=== PATIENT | male | born 1970 | race Caucasian/White ===

== ENCOUNTER 2017-10-18 19:22 | Emergency (ER) | payer MEDICAID ==
[2017-10-18 20:59] LABS: APPEARANCE HAZY (CLEAR); BACTERIA MANY /hpf (NONE SEEN); BILIRUBIN NEGATIVE (NEGATIVE); COLOR YELLOW (YELLOW); GLUCOSE NEGATIVE (NEGATIVE); KETONE NEGATIVE (NEGATIVE); NITRITE POSITIVE (NEGATIVE); PROTEIN NEGATIVE (NEGATIVE); RED CELLS - URINE OCC /hpf (0-5); SPECIFIC GRAVITY 1.015 (1.005-1.020); UROBILINOGEN NORMAL (NORMAL)
[2017-10-18 21:11] LABS: BASOPHILS 0.1 % (0-2); EOSINOPHILS 0.4 % (0-7); HEMATOCRIT 39.3 % (42.0-54.0); IMMATURE GRANULOCYTES 0.4 % (0-5); LYMPHOCYTES 7.5 % (15-50); MCH 23.9 pg (26.0-34.0); MCHC 30.5 g/dL (31.0-37.0); MCV 78.1 fL (80.0-100.0); MEAN PLATELET VOLUME 8.7 fL (7.4-10.4); MONOCYTES 5.7 % (2-11); NEUTROPHILS 85.9 % (40-80); PLATELET COUNT 228 10x3/uL (130-400); RBC 5.03 10x6/uL (4.20-6.10); WBC 6.7 10x3/uL (4.8-10.8)
[2017-10-18 21:29] LABS: ALBUMIN 4.4 g/dL (3.4-5.0); ALKALINE PHOSPHATASE 73 U/L (46-116); ALT (SGPT) 66 U/L (10-68); AMYLASE - SERUM 44 U/L (25-115); CALC OSMOLALITY 271 mosm/kg (275-300); CALCIUM 8.9 mg/dL (8.5-10.1); CARBON DIOXIDE 27.6 mmol/L (21.0-32.0); CHLORIDE - SERUM 97 mmol/L (98-107); CREATININE - SERUM 0.9 mg/dL (0.6-1.3); GLUCOSE 88 mg/dL (74-106); LIPASE 201 U/L (73-393); POTASSIUM - SERUM 3.5 mmol/L (3.5-5.1); PROTEIN - SERUM 8.2 g/dL (6.4-8.2); SODIUM 137 mmol/L (136-145); UREA NITROGEN 10 mg/dL (7-18); eGFR NON AFRICAN AMERICAN > 90 mL/min (90-120)
== END 2017-10-18 22:25 | disposition home or self-care (01) ==
LOC: D.ER 19:22
PROVIDERS: Family Medicine
DX: N39.0 Urinary tract infection, site not specified (principal); B20 Human immunodeficiency virus [HIV] disease

== ENCOUNTER 2019-07-30 22:43 | Day surgery (SDC) | payer MEDICAID ==
[~2019-07-30] VITALS: Ht 175.3 cm; Wt 86.4 kg
[2019-07-30] MEDS ORDERED: ZOFRAN ODT4 MG/UDTAB PO (22:48)
[2019-07-30] MEDS ORDERED: OMEPRAZOLE20 M1 PO (22:48)
[2019-07-30] MEDS ORDERED: BUPROPION XL300 MG PO (22:48)
[2019-07-30] MEDS ORDERED: STRIBILD TABLE1 EACH PO (22:48)
[2019-07-30] MEDS ORDERED: EFFEXOR37.5 MG PO (22:49)
[2019-07-30] MEDS ORDERED: COZAAR25 MG PO (22:50)
[2019-07-30] MEDS ORDERED: HYDROCHLOROTH12.5 M1 PO (22:50)
[2019-07-30] MEDS ORDERED: LOPRESSOR25 MG PO (22:50)
[2019-07-30 23:48] LABS: HEMATOCRIT 37.1 % (42.0-54.0); HEMOGLOBIN 12.7 g/dL (13.5-17.5); LYMPHOCYTES 17.6 % (15-50); MCH 29.1 pg (26.0-34.0); MCHC 34.2 g/dL (31.0-37.0); MCV 84.9 fL (80.0-100.0); MEAN PLATELET VOLUME 7.9 fL (7.4-10.4); RBC 4.37 10x6/uL (4.20-6.10); RDW 14.9 % (11.5-14.5); WBC 10.7 10x3/uL (4.8-10.8)
[2019-07-30 23:49] LABS: PLATELET COUNT 278 10x3/uL (130-400)
[2019-07-30 23:56] LABS: ANION GAP 16.3 mmol/L (8-16); CALCIUM 9.8 mg/dL (8.5-10.1); CARBON DIOXIDE 23.4 mmol/L (21.0-32.0); CREATININE - SERUM 1.2 mg/dL (0.6-1.3); POTASSIUM - SERUM 3.7 mmol/L (3.5-5.1)
[2019-07-31 00:02] LABS: ALBUMIN 4.4 g/dL (3.4-5.0); BILIRUBIN - TOTAL 1.06 mg/dL (0.2-1.3); PROTEIN - SERUM 8.6 g/dL (6.4-8.2)
--- NOTE | 2019-07-31 00:22 | NUR ---
RECEIVED PT TO FLOOR VIA STRETCHER. PT AMBULATED FROM STRETCHER INTO ROOM AND WALKED AROUND ROOM BEFORE GETTING IN BED. RIGHT HAND IV FLUSHED AND CONNECTED TO IV FLUIDS. DENIES PAIN. PT IS HYPERACTIVE AND RESTLESS. ADMITS TO USING METH TODAY. REVIEWED HOME MEDS AND HISTORY. ASSESSMENT COMPLETE PER FLOW-SHEET. PT IS NPO FOR POSSIBLE PROCEDURE. WILL CONTINUE TO MONITOR.
[2019-07-31] MEDS ORDERED: COZAAR50 MG PO (00:42)
[2019-07-31] MEDS ORDERED: EFFEXOR XR150 MG PO (00:42)
[2019-07-31] MEDS ORDERED: GENVOYA PO (00:44)
[2019-07-31] MEDS ORDERED: VALTREX1000 MG PO (00:46)
[2019-07-31 01:43] VITALS: BP 158/102; BMI 28.1
[2019-07-31 05:55] VITALS: BP 130/90
--- NOTE | 2019-07-31 08:15 | NUR ---
PATIENT RECIVED FROM PREVIOUS SHIFT AMBULATING IN ROOM WITH NO NEEDS VOICED, NPO FOR POSSIBLE PROCEDURE LATER TODAY TO REMOVE FOREIGN BODY FROM RECTUM. PATIENT IS ALERT AND ORIENTED WITH NO REPORTS OF PAIN AT THIS TIME,
[2019-07-31 08:27] VITALS: BP 142/87
[2019-07-31 08:59] VITALS: Ht 175.3 cm; Wt 86.4 kg
[2019-07-31 11:58] VITALS: BP 132/90
--- NOTE | 2019-07-31 13:31 | NUR ---
PATIENT TAKEN BY BED FOR PROCEDURE
[2019-07-31 15:47] VITALS: BP 104/61
--- NOTE | 2019-07-31 16:32 | NUR ---
IV REMOVED WITH NO REDNESS OR EDEMA AT SITE. DISCHARGE INSTRUCTIONS GIVEN TO PATIENT WITH UNDERSTANDING VOICED. PATIENT AMBULATED TO PRIVATE CAR PER HIS REQUEST.
--- NOTE | 2019-08-22 11:17 | DS ---
PATIENT:KIKE POWELL :66 MEDICAL RECORD: [id number] DISCHARGE SUMMARY ADMISSION DATE: 07/30/19 DISCHARGE DATE: 07/31/19 PREOPERATIVE DIAGNOSIS: Foreign body insertion into the rectum. OTHER DIAGNOSES: Include HIV, hepatitis, hypertension, gastroesophageal reflux, depression, hypertension. HOSPITAL COURSE: The patient presented with a lotion bottle that was in his rectum and could not be retrieved. Dr. Soria was asked to see the patient in consultation. He underwent lower endoscopy with retrieval of foreign body. The patient was then dismissed home. TRANSINT:[id number] Voice Confirmation ID: [id number] DOCUMENT ID: [id number] IRAIS ACOSTA MD at [id number] CC: [id number] DICTATION DATE: 08/10/191854 HAT BLOCK BENCH HAND: 08/11/[address] [facility] 07/31/19 [id number] [place] [address]
== END 2019-07-31 16:33 | disposition home or self-care (01) ==
LOC: OBSVTIME → D.OPS 22:43 → D.ER 22:43 → D.MS 23:46 → D.ER 23:46 → D.MS 23:46 → OBSVTIME 23:46 → D.ER 07-31 00:19 → EDSTATUS 07-31 15:15 → D.OPS 07-31 16:33 → D.MS 07-31 16:33
PROVIDERS: Family Medicine; ATTEND Surgery
DX: T18.5XXA Foreign body in anus and rectum, initial encounter (principal); B20 Human immunodeficiency virus [HIV] disease; K21.9 Gastro-esophageal reflux disease without esophagitis; I10 Essential (primary) hypertension; F17.200 Nicotine dependence, unspecified, uncomplicated

== ENCOUNTER 2020-07-08 13:07 | Emergency (ER) | payer MEDICAID ==
[2019-07-31 08:59] VITALS: BMI 28.1
[~2020-07-08 13:07] MED LIST: BUPROPION XL300 MG PO; COZAAR25 MG PO; COZAAR50 MG PO; EFFEXOR XR150 MG PO; EFFEXOR37.5 MG PO; GENVOYA PO; HYDROCHLOROTH12.5 M1 PO; LOPRESSOR25 MG PO; OMEPRAZOLE20 M1 PO; STRIBILD TABLE1 EACH PO; VALTREX1000 MG PO; ZOFRAN ODT4 MG/UDTAB PO
== END 2020-07-08 13:47 | disposition left against medical advice (07) ==
LOC: D.ER 13:07
DX: L02.414 Cutaneous abscess of left upper limb (principal)